=== PATIENT | male | born 1980 ===

== ENCOUNTER 2023-09-20 06:14 | Emergency (ER) | payer SELFPAY ==
[2023-09-20] MEDS: Ibuprofen 600 MG Tab PO ONE (07:02)
[2023-09-20] MEDS: traMADol 50 MG Tab PO ONE (07:02)
== END 2023-09-20 07:12 | disposition home or self-care (01) ==
LOC: MW.ED 06:14
DX: S60.112A Contusion of left thumb with damage to nail, initial encounter (principal); W22.8XXA Striking against or struck by other objects, initial encounter; Z75.8 Other problems related to medical facilities and other health care
CPT/HCPCS: 73140; 99283; A9270